=== PATIENT | male | born 1960 | race Caucasian/White ===

== ENCOUNTER → 2017-07-22 | Outpatient (CLI) | payer MEDICARE | END | disposition home or self-care (01) | LOC: RADMN 09:02 | PROVIDERS: ATTEND Anesthesiology | DX: M47.896 Other spondylosis, lumbar region (principal); R60.9 Edema, unspecified | CPT/HCPCS: 72148 ==

== ENCOUNTER → 2017-08-12 | Outpatient (CLI) | payer MEDICARE, MEDICAID ==
[~2017-08-12] MED LIST: ACET-784 PO; AMIN30LI28 PO; ASCO500 PO; ATOR20TA86 PO; BACL10TA PO; COLL30OI TP; DIPH25 PO; DOCU250C91 PO; FAMO20 PO; GABA-531 PO; HYDR-4061 PO; IBUP-2070 PO; IOVERSOL 320 MG/ML 100 ML VIAL ONE; IPRA3AMP4 IH; LACT1CAP84 PO; LORA10TA7 PO; MIRALAX PO; MOM30 PO; MULT-35 PO; TRAM50TA4 PO; ZINC220 PO; [UNRECOGNIZED DRUG - CODE] PO
== END | disposition home or self-care (01) ==
LOC: RADMN 08:28
PROVIDERS: ATTEND Internal Medicine
DX: Z43.3 Encounter for attention to colostomy (principal); N20.0 Calculus of kidney; Z90.49 Acquired absence of other specified parts of digestive tract; Z96.0 Presence of urogenital implants
CPT/HCPCS: 74177; Q9967

== ENCOUNTER → 2017-08-15 | Outpatient (CLI) | payer MEDICARE, MEDICAID ==
[~2017-08-15] VITALS: Ht 180.3 cm; Wt 77.1 kg
[~2017-08-15] MED LIST changes: -IOVERSOL 320 MG/ML 100 ML VIAL ONE; +LIDOCAINE HCL 4% 50 ML SOLUTION ONE
[2017-08-15 09:42] VITALS: BP 130/69
== END | disposition home or self-care (01) ==
LOC: HBOWC 09:10
PROVIDERS: ATTEND Surgery Plastic and Reconstructive Surgery
DX: S31.000D Unspecified open wound of lower back and pelvis without penetration into retroperitoneum, subsequent encounter (principal); X58.XXXD Exposure to other specified factors, subsequent encounter
CPT/HCPCS: 11042; 11043

== ENCOUNTER → 2017-08-22 | Outpatient (CLI) | payer MEDICARE, MEDICAID ==
[~2017-08-22] MED LIST changes: -LIDOCAINE HCL 4% 50 ML SOLUTION ONE; +LIDOCAINE HCL 4% 50 ML SOLUTION TP ONE
[2017-08-22 08:21] VITALS: BP 132/69
== END | disposition home or self-care (01) ==
LOC: HBOWC 07:08
PROVIDERS: ATTEND Surgery Plastic and Reconstructive Surgery
DX: L89.314 Pressure ulcer of right buttock, stage 4 (principal); L89.154 Pressure ulcer of sacral region, stage 4; Z90.49 Acquired absence of other specified parts of digestive tract
CPT/HCPCS: 11043

== ENCOUNTER → 2017-08-29 | Outpatient (CLI) | payer MEDICARE, MEDICAID ==
[~2017-08-29] MED LIST changes: -LIDOCAINE HCL 4% 50 ML SOLUTION TP ONE
[2017-08-29 08:28] VITALS: BP 149/92
== END | disposition home or self-care (01) ==
LOC: HBOWC 07:40
PROVIDERS: ATTEND Surgery Plastic and Reconstructive Surgery
DX: L89.314 Pressure ulcer of right buttock, stage 4 (principal); L89.154 Pressure ulcer of sacral region, stage 4; Z90.49 Acquired absence of other specified parts of digestive tract
CPT/HCPCS: 11043

== ENCOUNTER → 2017-09-05 | Outpatient (CLI) | payer MEDICARE, MEDICAID ==
[2017-09-05 08:18] VITALS: BP 134/80
== END | disposition home or self-care (01) ==
LOC: HBOWC 07:45
PROVIDERS: ATTEND Surgery Plastic and Reconstructive Surgery
DX: L89.314 Pressure ulcer of right buttock, stage 4 (principal); L89.154 Pressure ulcer of sacral region, stage 4; Z90.49 Acquired absence of other specified parts of digestive tract
CPT/HCPCS: 97597

== ENCOUNTER → 2017-09-08 | Outpatient (CLI) | payer MEDICARE, MEDICAID ==
[~2017-09-08] MED LIST changes: +GADOBUTROL 1 MMOL/ML 10 ML VIAL IVP ONE
== END | disposition home or self-care (01) ==
LOC: RADMN 11:49
PROVIDERS: ATTEND Surgery Plastic and Reconstructive Surgery
DX: L89.159 Pressure ulcer of sacral region, unspecified stage (principal); R60.0 Localized edema
CPT/HCPCS: 72197; A9585